=== PATIENT | male | born 1970 | race Caucasian/White ===

== ENCOUNTER 2020-12-24 08:32 | Outpatient (CLI) | payer BC ==
[2020-12-24 17:21] LABS: SARS-CoV-2 PCR by NAA Not Detected (NotDetected)
== END 2020-12-24 08:33 | disposition home or self-care (01) ==
LOC: CSHLAB 08:32
PROVIDERS: ATTEND Surgery
DX: Z01.812 Encounter for preprocedural laboratory examination (principal); Z20.822 Contact with and (suspected) exposure to COVID-19; K21.9 Gastro-esophageal reflux disease without esophagitis
CPT/HCPCS: U0003; U0005

== ENCOUNTER 2020-12-29 07:19 | Day surgery (SDC) | payer BC ==
[2020-12-28 11:20] VITALS: BMI 40.6
[2020-12-29] MEDS ORDERED: Lidocaine 1% MPF 2 ML VIAL ONE (07:50)
[2020-12-29] MEDS ORDERED: PROPOFOL 20 ML ONE (09:21)
== END 2020-12-29 10:18 | disposition home or self-care (01) ==
LOC: CSHSDC 07:19
PROVIDERS: ATTEND Surgery
PROC: 0DB68ZZ Excision of Stomach, Via Natural or Artificial Opening Endoscopic (ICD-10-PCS; principal; 2020-12-29)
DX: K21.9 Gastro-esophageal reflux disease without esophagitis (principal); E66.9 Obesity, unspecified; K29.70 Gastritis, unspecified, without bleeding; K44.9 Diaphragmatic hernia without obstruction or gangrene; E78.00 Pure hypercholesterolemia, unspecified; Z79.899 Other long term (current) drug therapy; F41.8 Other specified anxiety disorders; Z90.49 Acquired absence of other specified parts of digestive tract
CPT/HCPCS: 88305; 88342; J2704

== ENCOUNTER 2024-02-21 08:06 | Outpatient (CLI) | payer BC | END 2024-02-21 08:07 | disposition home or self-care (01) | LOC: CSHSLEEP 08:06 | PROVIDERS: ATTEND Internal Medicine | DX: G47.30 Sleep apnea, unspecified (principal); G47.10 Hypersomnia, unspecified | CPT/HCPCS: 95800 ==